=== PATIENT | male | born 1995 | race Caucasian/White ===

== ENCOUNTER 2019-10-07 11:03 | Emergency (ER) | payer OTHER ==
[~2019-10-07] VITALS: Ht 172.7 cm; Wt 81.1 kg
[2019-10-07] MEDS ORDERED: FLUORESCEIN OPHTH 1 MG STRIP OD ONE (12:30)
[2019-10-07] MEDS ORDERED: TETRACAINE 0.5% OPHTH SOLN 4ML OD ONE (12:30)
[2019-10-07] MEDS ORDERED: ZYRTTAB8 PO (12:52)
[2019-10-07] MEDS ORDERED: CETI1DRO OP (12:52)
[2019-10-07 12:56] VITALS: BP 161/77
== END 2019-10-07 13:03 | disposition home or self-care (01) ==
LOC: M ED 11:03
DX: H10.11 Acute atopic conjunctivitis, right eye (principal); F17.220 Nicotine dependence, chewing tobacco, uncomplicated